=== PATIENT | female | born 1950 | race Hispanic/Latino ===

== ENCOUNTER 2022-03-23 13:58 | Emergency (ER) | payer MEDICARE ==
[~2022-03-23] VITALS: Ht 160 cm; Wt 93.0 kg
[2022-03-23 19:50] VITALS: BP 160/98
== END 2022-03-23 20:00 | disposition home or self-care (01) ==
LOC: EDH 13:58
DX: U07.1 COVID-19 (principal); E78.00 Pure hypercholesterolemia, unspecified; I10 Essential (primary) hypertension; J45.909 Unspecified asthma, uncomplicated; Z90.49 Acquired absence of other specified parts of digestive tract; Z98.890 Other specified postprocedural states
CPT/HCPCS: 99284; 87804 ×2; 87635; 71045; C9803